=== PATIENT | female | born 1995 | race Two or more races ===

== ENCOUNTER 2019-05-21 15:36 | Emergency (ER) | payer SELFPAY ==
[~2019-05-21] VITALS: Ht 157.5 cm; Wt 63.0 kg
[2019-05-21 16:13] VITALS: BP 116/94
--- NOTE | 2019-05-21 16:21 | NUR ---
SEEN AND EXAMINED BY ROBERTH COSTA
[2019-05-21] MEDS ORDERED: IBUPROFEN 600 MG TABLET PO ONE ×2 (16:27→16:30)
--- NOTE | 2019-05-21 16:28 | NUR ---
THROAT SWAB DONE AND SENT TO LAB.
--- NOTE | 2019-05-21 17:57 | NUR ---
Patient discharged to home in stable condition. Written and verbal after care instructions given. Patient verbalizes understanding of instruction.
== END 2019-05-21 18:00 | disposition home or self-care (01) ==
LOC: ER 15:40
DX: J02.8 Acute pharyngitis due to other specified organisms (principal); B96.89 Other specified bacterial agents as the cause of diseases classified elsewhere
CPT/HCPCS: 86403-TC; 87070-TC